=== PATIENT | male | born 1995 | race Caucasian/White ===

== ENCOUNTER → 2018-03-13 13:52 | Outpatient (CLI) | payer OTHER, SELFPAY ==
--- NOTE | 2018-03-13 13:59 | ECHOD_ITS ---
Reason For Study: SYNCOPE Procedure This was a 2D Doppler, Color Flow transthoracic echocardiogram. The exam was of adequate technical quality. Exam performed in department. Left Ventricle Normal LV size. Mid cavitary false tendon noted. Left ventricular systolic function is normal. The estimated ejection fraction is 65 %. Diastolic function is indeterminate. No regional wall motion abnormalities noted. Right Ventricle Normal RV size. Normal systolic function. Atria Normal left atrium. Normal right atrium. No doppler evidence for ASD. Mitral Valve There is no mitral annular calcification. Normal mitral valve. Trivial mitral valve insufficiency. Tricuspid Valve Normal tricuspid valve. Trivial tricuspid valve insufficiency. Right ventricular systolic pressure estimated to be 24 mmHg. Aortic Valve Trisinus/trileaflet aortic valve. Normal aortic valve. Pulmonic Valve The pulmonic valve is not well visualized. Mild (1+) pulmonic valve insufficiency. Great Vessels Normal sized aortic root. Pericardium/Pleural No pericardial effusion. MMode/2D Measurements & Calculations LVIDd: 4.9 cm IVSd: 1.1 cm LA dimension: 3.0 cm LVIDs: 3.1 cm LVPWd: 1.0 cm RVDd: 3.5 cm FS: 36.8 % LAV(MOD-bp): 45.1 ml LA A4 area: 15.4 cm2 RA A4 area: 17.2 cm2 LAV(MOD-bp) Indexed: 26.4 ml/m2 LAV(MOD-sp2): 41.7 ml LAV(MOD-sp4): 35.1 ml Doppler Measurements & Calculations MV E max kar: 104.7 cm/sec Lat Peak E' Kar: 15.6 cm/sec Med Peak E' Kar: 13.7 cm/sec MV A max kar: 55.1 cm/sec E/E' lat: 6.7 E/E' med: 7.7 MV E/A: 1.9 Ao V2 max: 141.3 cm/sec LV V1 max: 131.6 cm/sec PA V2 max: 133.0 cm/sec Ao max P.0 mmHg LV V1 max P.9 mmHg PI end-d kar: 71.4 cm/sec TR max kar: 230.4 cm/sec TR max P.3 mmHg Interpretation Summary Left ventricular systolic function is normal. The estimated ejection fraction is 65 %. Mid cavitary false tendon noted. Trivial mitral valve insufficiency. Trivial tricuspid valve insufficiency. Mild (1+) pulmonic valve insufficiency. Right ventricular systolic pressure estimated to be 24 mmHg. Diastolic function is indeterminate. Ordering Physician: Archie Blakely Referring Physician: Archie Blakely Performed By: Halle Salazar, LAUREN, RVT
== END ==
PROVIDERS: Family Provider Family Medicine; PCP Family Medicine; Referring Provider Family Medicine; Visit Provider Family Medicine
DX: R55 Syncope and collapse (principal)
CPT/HCPCS: 93306